=== PATIENT | female | born 1930 | race Caucasian/White ===

== ENCOUNTER 2018-02-01 16:49 | Emergency (ER) | payer MEDICARE ==
[~2018-02-01 16:49] MED LIST: ISOVUE-370 76%-LOCM 1 ML ONE
--- NOTE | 2018-02-01 18:17 | RAD ---
THREE VIEWS LEFT SHOULDER: Comparison: None. History: Left shoulder pain. FINDINGS: Three views of the left shoulder shows no evidence of acute fracture or dislocation. Mild joint space narrowing is seen in the acromioclavicular and glenohumeral joint consistent with osteoarthritis. Th e visualized left thorax is unremarkable. 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 POS: [facility]
--- NOTE | 2018-02-01 18:21 | RAD ---
THREE VIEWS OF THE FACIAL BONES: Comparison: None. History: Facial bone pain. FINDINGS: Three views of the facial bones shows no evidence of displaced facial bone fracture. There is abnorma l lucency on the anterior radiograph between the orbits without obvious bony nasal septum extending t hrough this lucency. This is of uncertain significance. Paranasal sinuses are well aerated without ev idence of opacification. IMPRESSION: Nonspecific lucency between the orbits. This may represent air within the sphenoid sinuses that is no nspecific on this limited exam. A CT of the face with contrast is recommended for further evaluation. POS: [facility]
[2018-02-01 19:21] LABS: ALT (SGPT) 14 U/L (8-55); AST (SGOT) 11 U/L (5-34); Albumin 4.2 g/dL (3.4-4.8); Alkaline Phosphatase 70 U/L (40-150); Anion Gap 11 mmol/L (10-20); BUN (Urea Nitrogen) 25 mg/dL (9.8-20.1); Bilirubin, Total 0.5 mg/dL (0.2-1.2); Calc. Creatinine Clearance 0 mL/min (70-130); Calcium 9.9 mg/dL (7.8-10.44); Carbon Dioxide 27 mmol/L (23-31); Chloride 105 mmol/L (98-107); Estimated GFR-MDRD 44; Globulin 2.5 g/dL (2.4-3.5); Glucose 99 mg/dL (83-110); Protein, Total 6.7 g/dL (6.0-8.3); Sodium 139 mmol/L (136-145)
--- NOTE | 2018-02-01 21:21 | CT ---
CT OF THE BRAIN WITHOUT CONTRAST: Comparison: None. History: Fall with head trauma, headache. Technique: Multiple contiguous axial images were obtained in a CT of the brain without contrast. FINDINGS: There are scattered hypodensities in the subcortical and periventricular white matter likely secondar y to small vessel ischemic disease. No large confluent infarction is seen. There is no evidence of hy drocephalus, intracranial hemorrhage, or extraaxial fluid collections. There is soft tissue opacification of the anterior ethmoid air cells. There is also partial opacifica tion of the left frontal sinus. The other paranasal sinuses and mastoid air cells are well aerated. There is soft tissue swelling in the nose and there appear to be nasal bone fractures. IMPRESSION: 1. No evidence of acute intracranial abnormality. 2. Small vessel ischemic disease. 3. Bilateral nasal bone fractures. POS: [facility]
--- NOTE | 2018-02-01 21:56 | CT ---
CT OF THE FACE WITH CONTRAST: Comparison: None. History: Fall, tripping on the carpet and fell onto his face. Technique: Multiple contiguous axial images were obtained in a CT of the face with contrast. Sagittal and coronal reformats were performed. FINDINGS: There is a mildly displaced fracture of the right nasal bone. Soft tissue swelling is seen of the nos e and anterior nasal pharynx. There is fluid in the anterior ethmoid air cells as well as the left fr ontal sinus. The gloves and retrobulbar soft tissues are unremarkable. No enhancing fluid collection is seen to suggest an abscess. IMPRESSION: Mildly displaced right nasal bone fracture. POS: [facility]
== END 2018-02-01 22:53 | disposition home or self-care (01) ==
LOC: ERS 16:49
DX: S02.2XXA Fracture of nasal bones, initial encounter for closed fracture (principal); I10 Essential (primary) hypertension; I25.10 Atherosclerotic heart disease of native coronary artery without angina pectoris; Z79.899 Other long term (current) drug therapy; Z79.82 Long term (current) use of aspirin; W01.0XXA Fall on same level from slipping, tripping and stumbling without subsequent striking against object, initial encounter
CPT/HCPCS: 70150; 70450; 70487; 80053

== ENCOUNTER 2019-04-26 11:56 | Outpatient (CLI) | payer MEDICARE ==
--- NOTE | 2019-04-26 13:22 | MRI ---
MRI lumbar spine noncontrast: HISTORY: Low back pain. Bilateral hip pain. COMPARISON: None FINDINGS: Heterogeneous signal intensity involving inferior endplate of L4, superior plate of L5, inferior endp late of L5 and superior endplate of L6 compatible with type I and type II Modic changes. There is associated STIR hyperintensity as well as T2 hyperintensity. 6 mm of anterolisthesis of L4 upon L5. Appropriate signal intensity of the paraspinal muscles. Large right parapelvic cyst is noted. Left kidney slightly smaller than the contralateral side Conus medullaris terminates at the inferior aspect of T12. T12-L1: Minimal generalized disc bulge along with ligamentum flavum thickening. No significant centra l canal stenosis. Bilaterally, neural foramina are patent. L1-L2:Desiccation with mild loss of disc space height. Generalized disc bulge, ligament flavum thicke ifrah and facet hypertrophy result in mild central canal stenosis. Mild right and moderate left neural foraminal narrowing. L2-L3:Desiccation with severe loss of disc space height. Generalized disc bulge, ligament flavum thic kening and facet hypertrophy result in mild central canal stenosis. Mild narrowing of both subarticular zones. Disc material abuts but does not obscure either traversing L3 nerve root. Moderat e right and left neural foraminal narrowing. L3-L4:Desiccation with moderate to severe loss of disc space height. Broad-based disc bulge, ligament flavum thickening and facet hypertrophy result in moderate to severe central canal stenosis. There is a small amount of inferior disc extrusion. Moderate to severe bilateral neural foraminal narrowing . L4-L5:Desiccation with moderate loss of disc space height. Broad-based disc bulge, ligament flavum th ickening and facet hypertrophy result in severe central canal stenosis. There is a small amount of central superior disc extrusion. Mild to moderate right and moderate to severe left neural foraminal narrowing. L5-S1:Desiccation with moderate loss of disc space height. Generalized disc bulge encroaches upon bot h subarticular zones. There is mass effect without obscuration of bilateral traversing S1 nerve roots. 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 Moderate to se parvin bilateral neural foraminal narrowing. IMPRESSION: Degenerative changes of the lumbar spine as detailed above. Transcribed Date/Time: 04/26/2019 1:49 PM
== END 2019-04-26 11:57 | disposition home or self-care (01) ==
LOC: BICMRI 11:56
PROVIDERS: ATTEND Family Medicine
DX: M47.26 Other spondylosis with radiculopathy, lumbar region (principal)
CPT/HCPCS: 72148

== ENCOUNTER 2019-09-03 13:32 | Outpatient (CLI) | payer MEDICARE ==
--- NOTE | 2019-09-03 14:52 | BD ---
BONE DENSITOMETRY USING DEXA: Date: 09/03/19 HISTORY: 89-year-old female. Screening study. COMPARISON: None. FINDINGS: Z-Score is not provided. Lumbar Spine: BMD (g/cm2) L1 0.891 T-Score: -0.9 L2 0.995 T-Score: -0.3 L3 1.065 T-Score: -0.2 L4 1.115 T-Score: 0.5 L1-L4 1.023 T-Score: -0.2 Femoral Neck: 0.587 T-Score: -2.4 Total Femur: 0.689 T-Score: -2.1 IMPRESSION: Lumbar Spine: WHO classification is normal. Fracture risk not increased. Femoral Neck: WHO classification is osteopenia. 10 year fracture risk for major osteoporotic fracture is 21%; hip fracture 6.6%. POS: [facility]
== END 2019-09-03 13:33 | disposition home or self-care (01) ==
LOC: BICMAMMO 13:32
PROVIDERS: ATTEND Family Medicine
DX: Z13.820 Encounter for screening for osteoporosis (principal); Z78.0 Asymptomatic menopausal state; M85.88 Other specified disorders of bone density and structure, other site
CPT/HCPCS: 77080